=== PATIENT | female | born 1945 | race Caucasian/White ===

== ENCOUNTER 2019-12-03 10:31 | Outpatient (CLI) | payer MEDICARE, MEDICAID, SELFPAY ==
--- NOTE | 2019-12-03 10:40 | DI.RAD_ITS ---
EXAM: XR PELVIS AP CLINICAL HISTORY: right hip pain; preop planning TECHNIQUE: COMPARISON: ORTHO PELVIS AND LAT HIP RT 1 VW from 09/02/2019 FINDINGS: Single AP view was obtained. There is total hip joint replacement position on the left. The compone nts appear well seated. There are severe degenerative changes of the right hip with loss of the cart ilaginous joint space superiorly and flattening of the acetabulum and femoral head superiorly. There is marked sclerosis and prominent osteophyte formation at the right hip joint as well. IMPRESSION: Severe DJD right hip, THR in position on the left.
== END 2019-12-03 10:51 ==
PROVIDERS: PCP Neuromusculoskeletal Medicine & OMM; Referring Provider Neuromusculoskeletal Medicine & OMM; Visit Provider Student in an Organized Health Care Education/Training Program
DX: M25.551 Pain in right hip (principal); Z96.642 Presence of left artificial hip joint; M16.11 Unilateral primary osteoarthritis, right hip
CPT/HCPCS: 99203; 72170

== ENCOUNTER 2020-01-01 09:35 | Outpatient (CLI) | payer MEDICARE, MEDICAID, SELFPAY ==
--- NOTE | 2020-01-01 10:15 | DI.RAD_ITS ---
EXAM: XR PELVIS AP INDICATION: right hip OA; preop planning. COMPARISON: XR PELVIS AP from 12/03/2019 TECHNIQUE: 2D digital imaging was performed. FINDINGS: There has been no change in the left total hip prosthesis or surrounding bone. There are severe dege nerative changes of the right hip, unchanged. DATA REPOSITORY: RADIATION DOSE DELIVERED:
== END 2020-01-01 09:55 ==
PROVIDERS: PCP Neuromusculoskeletal Medicine & OMM; Visit Provider Physician Assistant
DX: M16.11 Unilateral primary osteoarthritis, right hip (principal); Z96.642 Presence of left artificial hip joint; Z01.818 Encounter for other preprocedural examination; I10 Essential (primary) hypertension; J44.9 Chronic obstructive pulmonary disease, unspecified
CPT/HCPCS: 72170

== ENCOUNTER 2020-01-13 08:01 | Outpatient (CLI) | payer MEDICARE, MEDICAID, SELFPAY ==
[2020-01-13 09:50] LABS: HGB 11.4 g/dL (12.0-15.5); Mean Corpuscular Hemoglobin 29.3 pg (27.0-33.0); Mean Corpuscular Volume 97.7 fL (80-95); Mean Platelet Volume 10.1 fL (8.0-11.0); Platelet Count 388 x1000/uL (130-400); RBC 3.89 m/cumm (4.00-5.20); RBC Distribution Width 14.4 % (11.7-14.6); White Blood Cell Count 12.28 k/cumm (4.4-10.8)
[2020-01-13 10:39] LABS: Anion Gap 9.4 mmol/L (3-11); BUN 37 mg/dL (7-18); CO2 29.6 mmol/L (21.0-32.0); CREATININE 1.77 mg/dL (0.55-1.02); Calcium 9.3 mg/dL (8.5-10.1); Chloride 102 mmol/L (98-107); Estimated GFR 28.04 (mL/min/1.73m2); Glucose 86 mg/dL (74-106); Potassium 4.4 mmol/L (3.5-5.1); Sodium 141 mmol/L (136-145)
== END 2020-01-13 08:21 ==
PROVIDERS: PCP Neuromusculoskeletal Medicine & OMM; Visit Provider Student in an Organized Health Care Education/Training Program
DX: M25.551 Pain in right hip (principal); M16.11 Unilateral primary osteoarthritis, right hip; Z01.818 Encounter for other preprocedural examination; Z01.812 Encounter for preprocedural laboratory examination
CPT/HCPCS: 36415; 80048; 85027; 86850; 86900; 86901

== ENCOUNTER 2020-01-20 07:58 | Inpatient (IN) | payer MEDICARE, MEDICAID, SELFPAY ==
[2020-01-13 08:00] VITALS: BP 123/77; PULSE 77; RESP 20; TEMP 36.6; O2SAT 93
--- NOTE | 2020-01-13 16:23 | PDOC.CMPRO ---
- If Service Date Differs Date of service: 01/13/20 Time of Service: 16:23 Care Management Progress Note CM was consulted to meet with Rose during her pre op visit for her hip replacement scheduled with Dr. Stacy on 01/20/20. Rose's son, Dawit was in the room with her. Rose lives alone in [place] in senior housing, which is all one level, and has already been outfitted with a raised toilet seat and grab bars. She has many neighbors who are supportive. She also has a daughter, La, who lives nearby in [place]. She currently receives housekeeping through [employer] once a week. Rose already has a FWW and a 4WW. She has [facility] and [facility] insurance. She does have an AD, but it is not on file. Both of her children are listed as agents. She will bring in a copy on the day of surgery. She had no further questions or concerns at this time.
--- NOTE | 2020-01-19 11:53 | NUR.NOTE ---
In reviewing pt's chart pre-operatively, this RN notified FABIO Lainez and Tyrell Grider CRNA of abnormal lab values from 01/13/20 who both verbalized understanding and indicated that, based on described labs, surgery okay to proceed and no re-draw of labs needed at this time. -Nathalie Kelley RN
--- NOTE | 2020-01-19 19:56 | PDOC.ANES ---
Anesthesia Note Called to speak with uLpe Abrams in regards to possibly rescheduling her elective surgery. I explained that she is in a higher brisk group if she were to contract IVELISSE-CoV-2/COVID 19. I explained that it has been recommended for higher risk groups to remain at home to minimize exposure to the virus. She understands the risk and would like to proceed as scheduled understanding that her overall risk of exposure at the hospital is unknown.
[2020-01-20] VITALS (13 sets, daily range): BP systolic 93–136; BP diastolic 38–78; PULSE 68–94; RESP 12–22; TEMP 36.4–37.3; O2SAT 91–98
--- NOTE | 2020-01-20 | DI.RAD_ITS ---
EXAM: XR PELVIS AP CLINICAL HISTORY: s/p R SUZANNE TECHNIQUE: COMPARISON: XR PELVIS AP from 01/01/2020 FINDINGS: Single portable AP view was obtained. Previously described left hip prosthesis is again noted in pos ition there is a new right hip prosthesis, the components of which appear well seated. IMPRESSION:
[2020-01-20] MEDS: Acetaminophen 500 MG TAB 1000 MG PO ×3 (08:37→19:35)
[2020-01-20] MEDS: Celecoxib 200 MG CAP 400 MG PO (08:37)
[2020-01-20] MEDS: Lactated Ringers 1,000 ML 80 ML IV ×2 (08:55→12:58)
[2020-01-20] MEDS: ceFAZolin 3,000 MG in Normal Saline 100 ML 200 MG IVPB (09:27)
[2020-01-20] MEDS: Ketorolac 30 MG/ML VIAL (10:29)
[2020-01-20] MEDS: Bupivacaine 0.25% Pres-Free 30 ML VIAL (10:29)
--- NOTE | 2020-01-20 11:15 | DI.RAD_ITS ---
EXAM: XR HIP RT IN OR CLINICAL HISTORY: OSTEOARTHRITIS RIGHT HIP TECHNIQUE: COMPARISON: ORTHO PELVIS AND LAT HIP RT 1 VW from 09/02/2019 FINDINGS: Two portable views were obtained and show apparent intraoperative images during right hip replacement , sizing component appears to be present in the femur and the acetabular component has been placed. IMPRESSION:
--- NOTE | 2020-01-20 12:15 | ROE_ITS ---
Date of service: 01/20/20 Time of Service: 11:58 Operative Note Operative Note DATE OF PROCEDURE: 01/20/20 PRE-OP DIAGNOSIS: Right Hip Osteoarthritis POST-OP DIAGNOSIS: same PROCEDURE: Right Total Hip Arthroplasty SURGEON: Edson Stacy CHOCOLATE REFINING ROLLER: Lamont Kelley ANESTHESIA: spinal ESTIMATED BLOOD LOSS: 300 PATHOLOGY: none sent TOURNIQUET TIME: 0 COMPLICATIONS: None Patient was transported to: PACU Patient's condition: stable Implants: 1. Depuy [place] Acetabular Component, 50mm 2. Depuy Acetabular Liner, 16q85mh 3. Depuy Corail Standard Collared Femoral Stem, Size 12 4. Depuy Altrx Ceramic Femoral Head, Size 32+5mm Indications: I have seen Rose in clinic for symptoms of hip arthritis, confirmed with radiographic findings. She has exhausted nonoperative methods and was having significant limitations in daily function and desired better function and less pain. I discussed the technical details of a hip replacement. I explained the risks of the procedure to include, but not limited to, bleeding, infection, pain, stiffness, fracture, damage to nerves and vessels, damage to muscles and tendons, loosening, instability, leg length inequality, need for repeat procedure, blood clot and cardiopulmonary demise. Despite these risks, Rose elected to proceed. Findings: There was significant signs of arthritis throughout the hip. Large osteophytes are present around the femoral head with notable deformity. This case was of notable difficulty due to the patient's habitus. Procedure Description: Rose was greeted in the preoperative holding area where the correct side was identified and marked. The consent was reviewed with the patient and signed. The history and physical was updated. All questions were answered. She was taken back to the operating room. A spinal anesthestic was then administered. The patient was placed into left lateral decubitus position on the operating table. She was secured to the table with a strap as well as padded post. The placement of the anterior post was very challenging given her large pannus. The pannus was elevated and padded with towels and gels. This allowed a single anterior posterior be placed against the anterior superior iliac spine. Prophylactic antibiotics in the form of Cefazolin were administered. 1g of Tranxemic Acid was given intravenously within 30 minutes of incision. The right leg was then prepped with Chloraprep and draped in a standard fashion. A second prep with Chloraprep was performed prior to placement of a shower-curtain type drape with Iodine impregnated skin protecti on. A timeout to confirm correct identity, side and site, procedure, allergies, anesthesia, and medical concerns was performed. A gently curved incision was then made overlying the tip of the greater trochanter. This approximately 15 cm incision was incised sharply down through the fat subcutaneous tissue. Bovie electrocautery was used for coagulation of crossing vessels until the fascia of the gluteus belen and iliotibial band was exposed. Once this was exposed the soft tissue was elevated off of this with a Kennedy and lap pad for better visualization. The tissue was incised and using a Metzenbaum scissor split down the IT band of the gluteus belen fascia. The fibers of the gluteus belen were split manually. The loose tissue overlying the greater trochanter and the short external rotators was resected. A Charnley retractor was placed deep. With slight external rotation the short external rotators were identified. The piriformis was identified and the space above it was opened with electrocautery. A Kennedy elevator was placed underneath the fibers of the gluteus minimus exposing the joint capsule. A full-thickness capsular sleeve was then elevated coming down along the neck adjacent to the piriformis into the piriformis fossa and then down the posterior aspect of the greater trochanter. This is taken all the way through quadratus femoris. This was elevated off of the neck with all capsular tissue as 1 sleeve. Gentle internal rotation was used to slowly bring the hip out of the acetabulum and expose the capsule which was resected with electrocautery. The hip was then dislocated with ease. Any remnant capsular tissue was resected until the superior border of the lesser trochanter was visible and palpable. This was used as a reference point and a neck cut position approximate 8 mm above this area was planned. The abductors and bone were protected. A neck osteotomy was performed using an oscillating saw based on preoperative templates. This cut started in the shoulder and of the lateral neck and exited medially as planned. The head was measured on the back table. A Cobra retractor was placed over the anterior wall and a twisted Hohmann was placed over the posterior wall. The contents of the cotyloid fossa were removed with electrocautery and the labrum was removed with a knife. There was a notable floor osteophyte. There was significant chondromalacia of the superior acetabulum. Acetabular reaming began with a 46 mm reamer. This first reaming was directed medial to get down to the true floor. This was inspected and reamed until the true floor was reached. I then reamed sequentially up to a 50mm reamer where good fit was obtained. The larger reamers were oriented based on anatomical reference of the anterior and lateral najera to ensure proper abduction and anteversion. A 50 mm Depuy [place] acetabular component was selected. The acetabulum was reamed around the periphery with the selected acetabular size to prevent a rim fit. The deep tissues were irrigated. The acetabular component was then impacted in a position of about 40-45 degrees of abduction and 15-20 degrees of anteversion, using the patient?s anatomy as the ultimate landmark. There was excellent filling and packing supervisor of the acetabular component and the inserting handle was removed. The acetabular liner, Depuy [id number] polyethylene liner, was inserted and lined up with the tines of the acetabular component. There was no soft tissue interposition. The liner was then impacted into position and confirmed to be well-seated. A portion of the zunilda-articular cocktail was then injected around the acetabulum into the capsule and periosteum. This cocktail consisted of 50cc of 0.25% Bupivicaine and 20cc of Exparel, expanded to a total of 120cc. Retractors were then removed from around the proximal femur. The leg was brought into some flexion and into rotation of 90 degrees. Any remnant capsule within the trochanter was released. There was excellent access to the proximal femur. The lateral neck remnant was removed with a rongeur. A box osteotome initiated the broach course. A small curved rasp and a curved curette were used to work laterally. Broaching then began with a size 8 Corail broach. This was inserted manually around the trochanter and into the canal before mallet blows. The broach was seated to the neck cut level based on the neck cut and the preoperative template. Sequential broaching was continued until a tight fit was obtained with good rotational control of the femur. A trial standard neck was inserted along with a +5 trial head. The leg was brought out of extension and adduction and then reduced with traction and internal rotation. The leg was stable anteriorly in a position of 30 degrees of extension and 90 degrees of external rotation. Intraoperative x- ray was use to assist with leg length and offset. However, due to the patient's habitus I was unable to obtain a full AP of the pelvis. The single AP of the hip appeared to match the preoperative template. Comparing the legs we had seem to increase the leg length of the right side to be even to the left. The periosteum and surrounding tissue was injected with remaining portion of the zunilda-articular cocktail. The proximal femur was irrigated as well as the deep tissues. The Depuy Corail standard collared stem, size 12, was then manually in serted into the proximal femur making sure to control rotation. It was then malleted into position with light blows, giving breaks to allow bone expansion and decrease risk of fracture. The selected Depuy Altrx Ceramic Head, size 32+5mm, was then placed onto the clean and dry trunnion and secured with impaction onto the tapered fit. The hip was then reduced. Stability checks were performed and the hip was stable to 90 degrees of flexion, 70 degrees of internal rotation with abduction and flexion of 70 degrees. There is maybe at most 1 mm of shuck with a direct pull. The deep tissues were thoroughly irrigated with Irrisept chlorhexadine solution. The second dose of TXA 1g was administered intravenously. The capsule and short external rotators were then reapproximated with Ethibond sutures through the posterior aspect of the greater trochanter. Other areas of the capsule were reapproximated with a #1 Vicryl. The gluteus fascia and the IT band was closed with a No. 2 Stratafix, barbed suture. Deep tissues were then reapproximated with 0 Vicryl and a running 2-0 Vicryl. The skin was closed with a running 4-0 Monocryl in a subcuticular fashion. This was reinforced with skin glue. A Mepilex silver dressing was applied. At the end of the case, all counts were correct. Rose was transferred to the hospital bed without difficulty and suffering no apparent complication. Rose has a good prognosis. Physical therapy will start today weight-bearing as tolerated with recommendation to keep knees wider than hips. Aspirin 81mg BID will be used for DVT prophylaxis.
[2020-01-20] MEDS: Meclizine 25 MG TAB PO ×2 (13:18→19:36)
[2020-01-20] MEDS: oxyCODONE 5 MG TAB PO ×2 (13:19→16:46)
[2020-01-20] MEDS: ceFAZolin 1 GM/50 ML BAG IVPB ×2 (13:20→21:18)
--- NOTE | 2020-01-20 13:32 | NUR.NOTE ---
Nursing Note: Pt A&Ox3, VSS. Talkative and c/o being hungry. Mepilex c/d/i on right posterior hip. Ice pack in place. CMST's WNL. Pt w/o of back pain and hip soreness. SCD's on. Luis patent. Oriented to room and call raphael system.
[2020-01-20 14:05] LABS: Anion Gap 5.9 mmol/L (3-11); BUN 26 mg/dL (7-18); CO2 29.1 mmol/L (21.0-32.0); CREATININE 1.75 mg/dL (0.55-1.02); Calcium 8.6 mg/dL (8.5-10.1); Chloride 104 mmol/L (98-107); Estimated GFR 28.41 (mL/min/1.73m2); Glucose 149 mg/dL (74-106); Potassium 4.4 mmol/L (3.5-5.1); Sodium 139 mmol/L (136-145)
--- NOTE | 2020-01-20 14:23 | PT.INIE ---
Date of service: 01/20/20 Time of Service: 14:23 PT Notes Visit Reasons: POSTERIOR R SUZANNE Physical Therapy Inpatient Initial Evaluation Date: 01/20/2020 Referring Doctor: Edson Stacy MD PT Orders: PT CONSULT: Status post Ortho surgery. Status post posterior right SUZANNE - expedited recovery for home discharge Precautions: Fall. Standard. WBAT on right LE. Posterior hip precautions in place. Patient Profile/Admitting Diagnosis: Patient is a 74-year-old female with unilateral osteoarthritis of right hip status post posterior right total hip arthroplasty on postoperative day 0. PMHX: Medical History (Updated 01/01/20 @ 10:36 by Loreto Paulino) Allergic rhinitis (Chronic) Anemia (Chronic) COPD (chronic obstructive pulmonary disease) (Chronic) Functional urinary incontinence (Chronic) Hyperlipidemia (Chronic) Hypertension (Chronic) Kidney disease (Acute) No further specifics in referral paperwork Low back pain (Chronic) Obesity (Chronic) Vertigo (Acute) Surgical History (Updated 01/01/20 @ 10:35 by Loreto Paulino) History of left hip replacement (Acute) [facility] ~2017 Social History/Home Situation: Patient lives alone in a 1 floor apartment in [place], [place] with 1 step to enter with a rail on the right side going up. She receives home health aide from the [facility], [facility] 2 hours/week to provide assistance with chores and laundry. Her son and daughter live close by and help as warranted with anything that she needs. She states that prior to surgery she is independent with all mobility ADL performance using a front wheeled walker on level surfaces and a single-point cane up-and-down steps. Equipment Owned/DME: Front wheeled walker, single-point cane, shower chair, hand-held shower Subjective: I have not felt this much relief on my hip for over a year while walking until today. I feel okay with transferring but I feel so fatigued and stiff I do not feel safe going home tonight, hopefully I can stay until tomorrow morning so I can really recover. Patient denies any headache, chest pain, and dizziness but did report of her right calf being stiff and achy. Did not complain of any numbness or tingling on bilateral lower extremities. Patient wanted to use her inhaler prior to doing ambulation activity as she may get too fatigued and short of breath. Objective: General Observation: Patient seen resting in bed. Smith catheter in place. IV in the right UE. Bilateral TEDS on. Mepilex Ag over surgical incision. Mental Status: Alert and oriented x4 Pain: 6/10 with weight bearing on the right hip and on the right calf area Vital Signs: 105/60 4 mmHg, 74 bpm, and 97% on room air. ROM: Right Upper Extremity: Shoulder Flexion WFL. Shoulder abduction WFL. Elbow flexion WFL. Wrist flexion WFL. Opening and closing of hand WFL. Left Upper Extremity: Shoulder Flexion WFL. Shoulder abduction WFL. Elbow flexion WFL. Wrist flexion WFL. Opening and closing of hand WFL. Right Lower Extremity: Hip flexion allowable until 90 degrees, not tested beyond 90 degrees. Hip abduction WFL. Knee flexion WFL. Ankle dorsiflexion WFL. Ankle plantarflexion WFL. Left Lower Extremity: Hip flexion unable to bend beyond 90 due to abdominal panniculus. Hip abduction WFL. Knee flexion WFL. Ankle dorsiflexion WFL. Ankle plantarflexion WFL. Strength: Right Upper Extremity: Shoulder flexors 5/5. Shoulder abductors 5/5. Elbow flexors 5/5. Elbow extensors 5/5. Remnants Cutter strong. Left Upper Extremity: Shoulder flexors 5/5. Shoulder abductors 5/5. Elbow flexors 5/5. Elbow extensors 5/5. Remnants Cutter strong. Right Lower Extremity: Hip flexors 3-/5. Hip abductors 4-/5. Knee flexors 4-/5. Knee extensors 4-/5. Ankle dorsiflexors 4/5. Ankle plantarflexors 4/5. Left Lower Extremity:Hip flexors 3-/5. Hip abductors 4/5. Knee flexors 4/5. Knee extensors 4/5. Ankle dorsiflexors 4/5. Ankle plantarflexors 4/5. Sensation: Intact as to pain and pressure on bilateral lower extremities. Bed Mobility/Transfers: Rolling SBA Supine to sit SBA Sit to supine minimal assist to right LE Sit to stand CGA Stand to sit CGA Bed to chair CGA Chair to bed CGA Gait: Patient tolerated level surface ambulation of 90 feet using front wheeled walker with 6/10 pain on right hip requiring CGA and IV pole management of PT as well as wheelchair follow of PHYSICIAN PRACTICE CONSULTANT. Reciprocal step to gait pattern. Patient reported mild breathlessness and fatigue requiring her to sit down on the wheelchair to be wheeled back to her room. After rest patient tolerated short distance walking of about 8 feet to transfer from wheelchair back to bed. Balance: Static Sitting: Normal Dynamic Sitting: Normal Static Standing: Fair Dynamic Standing: Fair Special Tests: Mobility Limitations Standardized Measure [facility] AM-PAC 6 clicks Basic Mobility Inpatient Short Form: Raw Score: 19 CMS Score: 42% deficit Informed Consent/Education: Patient instructed in purpose of PT consult and plan of care. Also reinforced posterior hip precautions for today's sessions. Assessment: Pain with ambulation, difficulty with walking, impaired mobility ADL, unsteadiness of gait, and limited activity tolerance resulting from postoperative status and COPD. Patient is a 74-year-old female with unilateral osteoarthritis of right hip status post posterior right total hip arthroplasty on postoperative day 0. Patient presents with clinical signs and symptoms consistent with current/admitting diagnoses that have resulted to mobility limitations, gait instability, generalized weakness, and impairment of motor control as demonstrated by the following impairment level findings: 1. Decreased strength to B LE major muscle groups 2. Impaired standing balance 3. Impaired activity tolerance 4. Limitation of joint range of motion in right hip due to movement precaution and postoperative status Impairments are contributing to the following functional limitations: 1. Dependent bed mobility skills 2. Increased dependence with transfers 3. Inability to safely ambulate without assistive device and physical assistance 4. Increase completion time for mobility ADL performance 5. Increased fall risk 6. Inability to negotiate steps alone safely Patient is assessed as a 55597 moderate complexity based on the following: History: 74-year-old female with impairment level findings, functional limitations, and [facility] deficits score 42% Examination: Demonstrable impairment in strength, balance, and range of motion with underlying impairments and functional limitations as documented above Presentation: Evolving Decision Makin moderate complexity Goals: Goals X1 week 1. Supine-Sit independent 2. Sit-Supine independent 3. Sit-Stand independent 4. Stand-Sit independent 5. Bed-Chair independent 6. Chair-Bed independent 7. Independent gait on level surface with use of least restrictive device for at least 300 feet without report of pain nor dyspnea 8. Independent stair negotiation while holding onto bilateral rails for at least Sahil Curry MD steps without report of pain nor dyspnea 9. Independent with home exercise program 10. Good static and dynamic standing balance/tolerance Plan of Care/Treatment Plan: 1-2x/day, 7 days/week x 1 week. Plan of care has been reviewed with the PIGMENT PRESSER providing the service under Physical Therapy direction. Initiate Physical Therapy intervention for strengthening, bed mobility, transfers, gait, stairs, balance training, use of assistive device. Treatment for today included education and training with mobility ADL performance with utmost consideration of posterior hip precautions. DISCHARGE RECOMMENDATIONS: May benefit from skilled physical therapy services according to orthopedic surgeon's timeline recommendations. Patient will be educated and trained on home exercise program per SUZANNE exercise protocol in preparation for outpatient physical therapy services. TREATMENT CODE/TIME: 9716 2 x 30 minutes, 9753 0 x 15 minutes beginning at 14:23 PM> Thank you very much for this referral. Sarah Rhodes PT, DPT, CLT [facility] [place], [place]
[2020-01-20] MEDS: Nystatin POWDER 15 GM JAR TP (19:35)
[2020-01-20] MEDS: Aspirin E.C. 81 MG TABEC PO (19:36)
[2020-01-20] MEDS: Celecoxib 100 MG CAP PO (19:36)
[2020-01-21] MEDS: Lactated Ringers 1,000 ML 80 ML IV (02:05)
[2020-01-21 03:33] VITALS: BP 117/77; PULSE 88; RESP 21; TEMP 37; O2SAT 92
[2020-01-21] MEDS: oxyCODONE 5 MG TAB PO ×3 (03:33→13:18)
[2020-01-21] MEDS: ceFAZolin 1 GM/50 ML BAG IVPB (05:32)
[2020-01-21 06:58] LABS: Anion Gap 5.9 mmol/L (3-11); BUN 32 mg/dL (7-18); CO2 28.1 mmol/L (21.0-32.0); CREATININE 2.05 mg/dL (0.55-1.02); Calcium 8.3 mg/dL (8.5-10.1); Chloride 104 mmol/L (98-107); Estimated GFR 23.67 (mL/min/1.73m2); Glucose 158 mg/dL (74-106); Potassium 4.6 mmol/L (3.5-5.1); Sodium 138 mmol/L (136-145)
--- NOTE | 2020-01-21 07:19 | DSE_ITS ---
Date of service: 01/21/20 Time of Service: 07:58 DS: Diagnosis Discharge Diagnosis (1) Osteoarthritis of right hip: Status: Chronic (2) Obesity: Status: Chronic (3) Chronic kidney disease, stage 3: Status: Acute Discharge Plan Disposition Patient Disposition: HOME W/HOME HEALTH SERVICE Condition: Improving Discharge Details Reason For Visit: RIGHT HIP DJD Admit Date/Time: 01/20/20 07:58 Admit Provider: Edson Stacy Attending Provider: Edson Stacy Primary Care Provider: Pankaj Hernandez [facility] Course Hospital Course: Patient was admitted to the medical/surgical floor following the procedure. It was tolerated well without any notable medical, surgical, or anesthetic complications. Mobilization began postoperatively. The henry catheter was removed and voiding spontaneously. Vitals were stable. Physical therapy worked with the patient and was cleared for discharge home. No acute medical issues. Home Meds and New Rx's Prescriptions: New aspirin 81 mg tablet,delayed release (DR/EC) 81 mg PO BID Qty: 60 RF: 0 acetaminophen 500 mg tablet 1,000 mg PO Q8H PRN (Reason: pain) Qty: 90 RF: 3 oxycodone 5 mg tablet 5 mg PO Q4H Qty: 18 RF: 0 Continued fluticasone propion-salmeterol [Advair Diskus] 250-50 mcg/dose blister with device 1 inh IH BID RF: 0 albuterol sulfate 90 mcg/actuation aerosol powdr breath activated 2 inh IH Q4H PRNRF: 0 benzonatate 200 mg capsule 200 mg PO BID-TID PRNRF: 0 cetirizine 10 mg capsule 10 mg PO DAILY RF: 0 citalopram 20 mg tablet 20 mg PO DAILY RF: 0 ezetimibe 10 mg tablet 10 mg PO DAILY RF: 0 hydrochlorothiazide 25 mg tablet 25 mg PO DAILY RF: 0 meclizine 25 mg tablet 25 mg PO TID RF: 0 metoprolol succinate 25 mg tablet extended release 24 hr 25 mg PO DAILY RF: 0 omeprazole 20 mg capsule,delayed release(DR/EC) 20 mg PO DAILY RF: 0 oxybutynin chloride 5 mg tablet 5 mg PO DAILY RF: 0 ramipril 10 mg capsule 10 mg PO DAILY RF: 0 tramadol 50 mg tablet 50 mg PO TID PRNRF: 0 Discontinued acetaminophen 500 mg capsule 500 mg PO Q8H PRN PRNRF: 0 oxycodone 5 mg tablet 5 mg PO QHS PRNRF: 0 aspirin 81 mg Tablet,Chewable 81 mg PO DAILY RF: 0 Discharge Instructions Additional Instructions: Dr. Stacy?s Total Hip Discharge Instructions Activity: The most important activity is to walk. You should try to take short walks a few times a day. You should keep your knees wider than your hips. Make sure to sleep or rest with a pillow between the knees to encourage this. You should avoid extremes of position and slowly start to work on stretching. - Home health physical therapy will be ordered for you. - You should wear the JESSICA hose on both legs for 2 weeks. Dressing: Keep the surgical dressing in place for at least one week. After the first week it may be removed and replace with light gauze and tape or nothing. It may get wet after 3 days but avoid soaking the dressing. If it gets wet, just lightly pat dry. You may desire to keep the initial dressing on until followup as long as it is intact and not soiled. Medications: - You should take Tylenol as your primary pain control medications. You may also take an occassional Ibuprofen but this is not prescribed due to your poor kidney function. - You have been prescribed a stronger pain medication Oxycodone for breakthrough pain, take as needed as prescribed. - You need to continue taking your stomach acid reduction agent Omeprazole to help reduce stomach acid and reflux. - You will be taking Aspirin 81mg twice a day for DVT prevention unless instructed otherwise. - If you have constipation you should take Colace or Miralax (both [id number]). It takes most people 3-4 days to have a bowel movement. - Continue to drink lots of fluids for the first few weeks to stay hydrated and help with post-operative constipation. Follow-up: 2 weeks 1. Encounter Date and Reason I certify that ROSE CRABTREE was seen by Edson Stacy MD on 01/21/20 and that I had a [id number] encounter with this patient that meets the physician face to face encounter requirements. 2. Clinical Findings Supporting Skilled Need and Homebound Status I certify that home health services are medically necessary, include either intermittent retirement and/or physical/speech therapy, and that this patient is homebound in that absences from the home require considerable and taxing effort and are infrequent or of short duration, or are attributable to th e need to receive medical care. [X] (a) Attached documentation from encounter provides clinical findings supporting skilled need and homebound status (including what assistance patient requires to leave the home). The encounter with the patient was in whole, or in part, for the following medical condition, which is the primary reason for home health care: RIGHT HIP DJD Half-Way: Physical Therapy: Rose would benefit from home health physical therapy to assist in gaining independence with mobility and ADLs after right hip replacement. This was a posterior approach and she should keep her knees wider than her hips. She has significant weakness and gait abnormalities. Speech Therapy: Homebound: Rose is homebound and cannot leave her home unassisted due to gait disturbance and weakness. 3. Certification and Authentication I certify that I composed the above information based on my clinical judgement relating to this patient's medical condition and, if applicable, clinical findings communicated to me by the NPP or inpatient physician who performed the Home Health Referral. All further orders will be obtained through Dr. Edson Stacy Referrals: Edson Stacy MD [ [facility] STAFF PHYSICIAN] - Activity:: Activity as Tolerated Equipment/Supplies:: Walker Diet:: As Tolerated Discharge Orders Discharge Orders: Discharge Order (Routine); Ordered 01/21/20 Ordered By: Edson Stacy DS: Summary Status at Discharge Functional status at discharge: uses cane/walker Overall status at discharge: patient is progressing back to baseline Mental Status: mental status grossly normal Speech and Movement: speech and movement normal Mood: congruent mood Affect: normal affect Exam Psych Mental Status: mental status grossly normal Speech and Movement: speech and movement normal Mood: congruent mood Affect: normal affect DS: Data Vitals/I&O Vitals and I&O: Vital Signs Temperature 37.0 C 01/21/20 03:33 Temperature Source Tympanic 01/21/20 03:33 Pulse 88 01/21/20 03:33 Pulse Rhythm Regular 01/21/20 02:31 Respiratory Rate 21 01/21/20 03:33 Respiratory Effort 01/21/20 02:31 Respiratory Depth Normal 01/21/20 02:31 Respiratory Pattern Normal 01/21/20 02:31 Blood Pressure 117/77 01/21/20 03:33 Pulse Oximetry 92 L 01/21/20 03:33 Oxygen Delivery Method Room Air 01/21/20 03:33 Oxygen Flow Rate 0 01/21/20 03:33 Pain Level 8 01/21/20 04:04 Comment 01/20/20 13:08 Intake & Output 01/20/20 01/20/20 01/21/20 11:59 23:59 11:59 Intake Total 720 / 1286.667 566.667 / 5900.414 3125 / 1000 Output Total 300 / 300 400 / 400 Balance 720 / 986.667 266.667 / 986.667 600 / 600 Weight 123.8 kg Intake: IV 720 / 926.667 206.667 / 368.613 3199 / 1000 Oral 360 / 360 Output: Urine 400 / 400 Estimated Blood Loss 300 / 300 Other: Urine Color Yellow Yellow Urine Appearance Clear Clear Clear Emesis Description None None Data Completed and Pending Labs on day of discharge: Labs from last 24 hours 01/21/20 01/20/20 06:10 13:50 Sodium 138 139 Potassium 4.6 4.4 Chloride 104 104 Carbon Dioxide 28.1 29.1 Anion Gap 5.9 5.9 BUN 32 H 26 H Creatinine 2.05 H 1.75 H Estimated GFR/1.73 m2 23.67 28.41 Glucose 158 H 149 H Calcium 8.3 L 8.6 PFSH Medical History Allergic rhinitis (Chronic) Anemia (Chronic) Chronic kidney disease, stage 3 (Acute) COPD (chronic obstructive pulmonary disease) (Chronic) Functional urinary incontinence (Chronic) Hyperlipidemia (Chronic) Hypertension (Chronic) Low back pain (Chronic) Obesity (Chronic) Vertigo (Acute) Surgical History History of left hip replacement (Acute) [facility] ~2017 Social History Smoking/Tobacco Use Status: Former Tobacco Use Pack-years: 10 Alcohol Intake: never Drug use: Never Household members: none current occupation: retired Current gender identity: female
[2020-01-21 07:25] VITALS: BP 128/84; PULSE 83; RESP 18; TEMP 37.2; O2SAT 93
[2020-01-21] MEDS: hydroCHLOROthiazide 25 MG TAB PO (07:52)
[2020-01-21] MEDS: Meclizine 25 MG TAB PO ×2 (07:52→13:19)
[2020-01-21] MEDS: Aspirin E.C. 81 MG TABEC PO (07:52)
[2020-01-21] MEDS: Citalopram 20 MG TAB PO (07:52)
[2020-01-21] MEDS: Omeprazole 20 MG CAPCR PO (07:52)
[2020-01-21] MEDS: Cetirizine 10 MG TAB PO (07:52)
[2020-01-21] MEDS: Acetaminophen 500 MG TAB 1000 MG PO ×2 (07:52→13:18)
[2020-01-21] MEDS: Ramipril 5 MG CAP 10 MG PO (07:52)
[2020-01-21] MEDS: Ezetimibe 10 MG TAB PO (07:52)
[2020-01-21] MEDS: Metoprolol CR 25 MG TABCR PO (07:52)
[2020-01-21] MEDS: Polyethylene Glycol 3350 17 GM PACKET PO (07:53)
[2020-01-21] MEDS: Nystatin POWDER 15 GM JAR TP (08:01)
[2020-01-21 12:14] VITALS: BP 104/68; PULSE 90; RESP 18; TEMP 37.2; O2SAT 92
--- NOTE | 2020-01-21 15:09 | INDS_ITS ---
PT Notes Visit Reasons: RIGHT HIP DJD Date: 01/21/2020 Dates of Treatment: 01/20/20-01/21/20 Referring Doctor: Edson Stacy MD PT Orders: PT CONSULT: Status post Ortho surgery. Status post posterior right SUZANNE - expedited recovery for home discharge Precautions: Fall. Standard. WBAT on right LE. Posterior hip precautions in place. Patient Profile/Admitting Diagnosis: Patient is a 74-year-old female with unilateral osteoarthritis of right hip status post posterior right total hip arthroplasty on postoperative day 1. PMHX: Medical History (Updated 01/01/20 @ 10:36 by Loreto Paulino) Allergic rhinitis (Chronic) Anemia (Chronic) COPD (chronic obstructive pulmonary disease) (Chronic) Functional urinary incontinence (Chronic) Hyperlipidemia (Chronic) Hypertension (Chronic) Kidney disease (Acute) No further specifics in referral paperwork Low back pain (Chronic) Obesity (Chronic) Vertigo (Acute) Surgical History (Updated 01/01/20 @ 10:35 by Loreto Paulino) History of left hip replacement (Acute) [facility] ~2017 Social History/Home Situation: Patient lives alone in a 1 floor apartment in [place], [place] with 1 step to enter with a rail on the right side going up. She receives home health aide from the [facility] 2 hours/week to provide assistance with chores and laundry. Her son and daughter live close by and help as warranted with anything that she needs. She states that prior to surgery she is independent with all mobility ADL performance using a front wheeled walker on level surfaces and a single-point cane up-and-down steps. Equipment Owned/DME: Front wheeled walker, single-point cane, shower chair, hand-held shower Subjective: Patient refuses initial attempt at intervention in the am. She was seen for PM session, just prior to transition home. She reports ongoing right knee pain. She has questions about getting in the car. Objective: General Observation: Patient resting in chair at initiation of seession. No l alaina. Mental Status: Alert and oriented x4 ROM: Right Upper Extremity: Shoulder Flexion WFL. Shoulder abduction WFL. Elbow flexion WFL. Wrist flexion WFL. Opening and closing of hand WFL. Left Upper Extremity: Shoulder Flexion WFL. Shoulder abduction WFL. Elbow flexion WFL. Wrist flexion WFL. Opening and closing of hand WFL. Right Lower Extremity: Hip flexion allowable until 90 degrees, not tested beyond 90 degrees. Hip abduction WFL. Knee flexion WFL. Ankle dorsiflexion WFL. Ankle plantarflexion WFL. Left Lower Extremity: Hip flexion unable to bend beyond 90 due to abdominal panniculus. Hip abduction WFL. Knee flexion WFL. Ankle dorsiflexion WFL. Ankle plantarflexion WFL. Strength: Right Upper Extremity: Shoulder flexors 5/5. Shoulder abductors 5/5. Elbow flexors 5/5. Elbow extensors 5/5. Automatic Splicing Machine Operator strong. Left Upper Extremity: Shoulder flexors 5/5. Shoulder abductors 5/5. Elbow flexors 5/5. Elbow extensors 5/5. Automatic Splicing Machine Operator strong. Right Lower Extremity: Hip flexors 3/5. Hip abductors 4-/5. Knee flexors 4-/5. Knee extensors 4-/5. Ankle dorsiflexors 4/5. Ankle plantarflexors 4/5. Left Lower Extremity:Hip flexors 3-/5. Hip abductors 4/5. Knee flexors 4/5. Knee extensors 4/5. Ankle dorsiflexors 4/5. Ankle plantarflexors 4/5. Sensation: Intact as to pain and pressure on bilateral lower extremities. Bed Mobility/Transfers: Rolling SBA Supine to sit SBA Sit to supine minimal assist to right LE Sit to stand supervision Stand to sit supervision Bed to chair CGA Chair to bed CGA Gait: Patient tolerated level surface ambulation of up to 90 feet using front wheeled walker . During today's session, she ambulates 20'x1 and 6'x1, with supervision and need for cues for FWW management. Balance: Static Sitting: Normal Dynamic Sitting: Normal Static Standing: Fair Dynamic Standing: Fair Treatment: Today's session consisted of re-evaluation, followed by extensive patient education regarding transfers, home program, and hip precautions. She was assisted with ambulation as noted above, and performed car transfer with mod A x 1 and SBA x 1. Assessment: Patient referred for PT services after right total hip replacement, performed 01/20/2020. She is received to PT sessions during her acute care stay, and has demonstrated mobility sufficient to allow for safe return home. She does require continued PT intervention by home health services, which will be beginning tomorrow. At this point, she is appropriate for discharge home. Goals: Goals X1 week 1. Supine-Sit independent (progressing towards, with patient able to complete with supervision) 2. Sit-Supine independent(progressing towards, with patient able to complete with supervision) 3. Sit-Stand independent(progressing towards, with patient able to complete with supervision) 4. Stand-Sit independent(progressing towards, with patient able to complete with supervision) 5. Bed-Chair independent(progressing towards, with patient able to complete with supervision) 6. Chair-Bed independent(progressing towards, with patient able to complete with supervision) 7. Independent gait on level surface with use of least restrictive device for at least 300 feet without report of pain nor dyspnea (not met due to patient ref usal) 8. Independent stair negotiation while holding onto bilateral rails for at least 3 steps without report of pain nor dyspnea (not met due to patient refusal) 9. Independent with home exercise program (met) 10. Good static and dynamic standing balance/tolerance (not met) Plan of Care/Treatment Plan: DC home with home health services DISCHARGE RECOMMENDATIONS: Home health PT TREATMENT CODE/TIME: 30 minutes (9753 0?2) Nayeli Quintana, PT, DPT [facility]
--- NOTE | 2020-01-21 17:07 | PDOC.CMIN ---
- If Service Date Differs Date of service: 01/21/20 Time of Service: 17:08 Care Management Initial Assess REASON FOR HOSPITALIZATION:: Right Hip DJD PAST MEDICAL HISTORY/PAST SURGICAL HISTORY:: Medical History (Updated 01/01/20 @ 10:36 by Loreto Paulino). Allergic rhinitis (Chronic). Anemia (Chronic). COPD (chronic obstructive pulmonary disease) (Chronic). Functional urinary incontinence (Chronic). Hyperlipidemia (Chronic). Hypertension (Chronic). Kidney disease (Acute). No further specifics in referral paperwork. Low back pain (Chronic). Obesity (Chronic). Vertigo (Acute). Surgical History (Updated 01/01/20 @ 10:35 by Loreto Paulino). History of left hip replacement (Acute). [facility] ~2017 PREVIOUS FUNCTIONAL STATUS/SOCIAL/FAMILY SUPPORTS:: Rose lives in a single floor apartment in [place], which is [facility]. She has a son, Dawit, and a daughter, La, who both live nearby and are identified as supports. She also stated that she has many friends and neighbors who check in on her. She has a HH aide visit her weekly to help around the house. She is independent with her ADL's. CURRENT FUNCTIONAL STATUS:: Rose was sitting up in her chair when CM met with her. She was eating her lunch, which she stated was very good. She also reported that she has been in some pain, but it has been well controlled. She had a question about needing help with her JESSICA stockings. CM ordered additional HH support to visit her in the home, who will assist with putting on the JESSICA's. She also asked if someone from [facility] would help her into her son's car, which CM assured her that a nurse/aid would help. CM will continue to follow. ADVANCE DIRECTIVES:: Not on file, but Rose stated that she has one, and both of her children are listed as agent. She also reported that she would supply [facility] with a copy. Has patient been provided with information about the portal?: No Did the patient sign up for the portal?: No CODE STATUS:: Full Code INSURANCE COVERAGE / FINANCIAL ISSUES:: [facility] CURRENT HOME/COMMUNITY SERVICES/EQUIPMENT:: Rose has a FWW and a 4WW. She also has grab bars and a raised toilet seat. She has current HH services in the form of an aid helping around the house weekly. PRIMARY CARE PHYSICIAN:: Pankaj Hernandez POTENTIAL DISCHARGE NEEDS:: Evaluations for further needs, follow up appointments PATIENT/FAMILY EDUCATION NEEDS:: Review discharge instructions regarding activity levels and medications, discussion of self care needs and goals of care. ANTICIPATED BARRIERS TO DISCHARGE:: None identified at this time. TRANSPORTATION:: Rose's son, Dawit will drive her home via private vehicle. PLAN:: Rose will return home when medically cleared with new orders for HH RN, PT, OT. Her son will drive her home via private vehicle. She will follow up with Ortho, as recommended. CM will continue to follow.
--- NOTE | 2020-01-21 17:35 | CMDISCH_ITS ---
- If Service Date Differs Date of service: 01/21/20 Time of Service: 17:35 LACE Index Scoring Tool - Questions: Length of Stay (in days): 2 Acuity (Admit via E.D.?): No Comorbidities: Chronic Pulmonary Disease, Liver or Renal Disease E.D. Visits: 0 - Answers: Total Score: 7 Risk of Readmission: Low Risk Care Management Discharge Reason for Hospitalization: Right Hip DJD Discharge Plan: Rose will return home with new orders for RN, PT, OT. Her son will drive her home via private vehicle. She will follow up with Ortho, as recommended. She is agreeable to returning home. Patient/Family Education Needs: Review discharge instructions regarding activity levels and medications, discussion of self care needs and goals of care. Services Needed at Discharge: Home Health Care Services (O/E [facility] RN, PT, OT, TRAVEL SERVICES PROFESSIONAL)
== END 2020-01-21 13:27 | disposition home health service (06) | DRG 470 ==
LOC: PDS 09:39 → MS 13:30
PROVIDERS: Admitting Provider Student in an Organized Health Care Education/Training Program; PCP Neuromusculoskeletal Medicine & OMM; Visit Provider Student in an Organized Health Care Education/Training Program
PROC: 0SR904A Replacement of Right Hip Joint with Ceramic on Polyethylene Synthetic Substitute, Uncemented, Open Approach (ICD-10-PCS; CPT 27130; principal; 2020-01-20 07:30)
DX: M16.11 Unilateral primary osteoarthritis, right hip (principal); Z68.42 Body mass index [BMI] 45.0-49.9, adult; M25.551 Pain in right hip; Z96.641 Presence of right artificial hip joint; J44.9 Chronic obstructive pulmonary disease, unspecified; N18.3 Chronic kidney disease, stage 3 (moderate); I12.9 Hypertensive chronic kidney disease with stage 1 through stage 4 chronic kidney disease, or unspecified chronic kidney disease; E78.5 Hyperlipidemia, unspecified; E66.9 Obesity, unspecified; Z87.891 Personal history of nicotine dependence
CPT/HCPCS: 27130; 36415; 80048; 97163; 97530; NC; 72170; 73501; J0690; J1885; J2250